=== PATIENT | female | born 1990 | race Two or more races ===

== ENCOUNTER 2020-09-20 05:13 | Inpatient (IN) | payer OTHER ==
[~2020-09-20] VITALS: Ht 165.1 cm; Wt 87.1 kg
--- NOTE | 2020-09-20 05:19 | NUR ---
PATIENT IS RECIEVED SAYING THAT SHE IS 12 WEEKS PREGANANT AND AND IN PELVIC PAIN SINCE EARLIER TODAY. PATIENT ALSO CLAIMS SHE HAS SCANT VAGINAL BLEEDING.
--- NOTE | 2020-09-20 06:13 | NUR ---
SEWELL EDUCA A PTE SOBRE [place] MEDICO ESTA REFIERE ENTENDER. SE CATALINA MUESTRAS DE LABORATORIO UTILIZANDO MEDIDAS ASEPTICAS. SE COLOCA H/L EL CUAL SE ENCUENTRA PATENTE Y ALEAH DE EDEMA. SE ADMINISTRAN MEDICAMENTOS A PTE LOS CUALES [place]. PTE PENDIENTE A ESTUDIO DE SONOGRAFIA.
== END 2020-09-21 12:30 | disposition home or self-care (01) | DRG 770 ==
LOC: ER 05:13 → SEC-K 11:40 → O/R 09-21 09:32
PROVIDERS: ADMIT Obstetrics & Gynecology; ATTEND Obstetrics & Gynecology
PROC: BY49ZZZ Ultrasonography of First Trimester, Single Fetus (ICD-10-PCS; 2020-09-20)
PROC: 10D17ZZ Extraction of Products of Conception, Retained, Via Natural or Artificial Opening (ICD-10-PCS; principal; 2020-09-20 15:45)
DX: O02.1 Missed abortion (principal); Z3A.11 11 weeks gestation of pregnancy; Z20.822 Contact with and (suspected) exposure to COVID-19